=== PATIENT | male | born 1980 | race Caucasian/White ===

== ENCOUNTER 2017-08-15 17:00 | Emergency (ER) | payer MEDICAID ==
[~2017-08-15] VITALS: Ht 175.3 cm; Wt 117.9 kg
[~2017-08-15 17:00] MED LIST: KEFLEX 500MG.500 MG PO; MINOCYCLINE 10100 MG PO; PREDNISONE 20MG20 MG PO; SEPTRA DS 800 M1 TAB PO; TERBINAFINE250 MG PO; TESSALON PERLE100 MG PO
--- NOTE | 2017-08-15 17:08 | Emergency Room Report ---
History of Present Illness Time Seen by [id number] Presenting Problem in Triage Pt arrived:Walked Presenting Problem:PT STATES THAT HE HAS BEEN HAVING A SHARP PAIN IN THE LEFT CHEST FOR [address] AND WENT TO DR[address] GASTELUM OFFICE TODAY AND WAS SENT HERE BECAUSE [facility] OFFICE WAS CLOSED Onset of symptoms date/time:/ or onset unknown for:MEDICAL HX UNKNOWN Treatment Prior to Arrival: SERVICE CONSULTANT Provided by: Sepsis Risk Assessment: Temp: 99 B/P: 163/91 MAP: 115 Pulse: 89 Resp: 18 Recent fever? N Clinical Suspician of Infection? N Mental Status: 1 - Regular (Normal Baseline) Sepsis Risk:Low Sepsis Risk Have you (or family members/close friends) recently traveled outside the [place]? N If Yes, where/when: Have you had exposure to infectious disease within the past month? N TB? Other? Specify: Comment The patient says that he is sent from Dr. Pang's office where he saw nurse practitioner for chest pain and elevated blood pressure. He says he has been having intermittent sharp pains in his sternal and LEFT parasternal area for 2 weeks. They last about 15-20 seconds. No associated shortness of breath, nausea, diaphoresis, or radiation. He does not currently have pain. He says he saw his Suboxone doctor on Monday 4 days ago for the symptoms and was found to have high blood pressure and was told to see his primary care doctor. He went to Dr. Pang's office today and he said his blood pressure was elevated again. He said that they called the manager environmental health and safety's office to have him seen, but they were close , so they sent him to the emergency department to be checked out. Did not discuss admission with him, he is under the impression he was here to be checked. He does not have a history of heart disease, hypertension, diabetes, or hyperlipidemia. He does smoke. His mother has had a heart attack and cardiac stent and his 2 brothers have heart murmurs. He says he has intermittent right-sided headaches for 2-3 days. He says he thinks this is all due to the fact that he is under a lot of stress. He has been given a prescription for lisinopril today by Dr. Pang's office, but has not yet filled it. ALLERGIES Coded Allergies: Penicillins (08/15/17) Home Medications Reported Medications BUPRENORPHINE HCL/NALOXONE HCL (Buprenorphin-Naloxon 8-2 MG Sl) 1 TAB SL BID #14 History Medical History General CAD? No Angina: No MD: No Hypertension? No Hyperlipidemia? No CHF? No DVT? No PE? No COPD? No Asthma? No Anemia? No GERD? No Gastric ulcers? No GI Bleed? No Hernia? Yes Thyroid Problems? No Hypothyroidism? No CVA? No Seizures? No Diabetes? No Renal Insuffiency? No End Stage Renal Disease? No UTI? No Stones? No BPH? No GB Disease: No Nephritic Syndrome? No Asplenia? No Hepatitis? No Sickle Cell Disease? No Arthritis? No Migraines? No Cataracts? No Glaucoma? No MRSA? No HIV? No TB? No Anxiety? No Depression? No Cancer? No More? No Immunization Hx DT/Tetanus 5-10 Years Ago Surgical Hx Previous Surgery?Y HERNIA REPAIR Social History Smoking Hx Packs/day < 1 Pack Alcohol Alcohol: No Review of Systems All Other Systems Reviewed and Negative Constitutional denies diaphoresis Respiratory denies shortness of breath Cardiovascular chest pain Gastrointestinal denies abdominal pain, denies nausea, denies vomiting Psychiatric/Neurological headache Physical Exam Vital Signs Vital Signs Date Time Temp Pulse Resp B/P Pulse O2 O2 Flow FiO2 Ox Delivery Rate 08/15 1818 98.1 76 18 154/93 98 08/15 1701 99.0 89 18 163/91 98 General Appearance normal appearance, WD/WN Eye Exam - bilateral eye normal exam, bilateral eye PERRL, bilateral eye EOMI Ear, Nose, Throat hearing grossly normal, normal ENT inspection Neck normal inspection, non-tender, supple, full range of motion Respiratory Status Yes: trachea midline, chest symmetrical, non tender chest. No: respiratory distress. Lung Sounds bilateral: normal breath sounds, lungs clear. 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 No Results/Orders Laboratory Tests 08/15/171709: Sodium 138, Potassium 3.7, Chloride 103, Carbon Dioxide 32, BUN 9, Creatinine 0.8, Estimated Creat Clear 213 H, Estimated GFR (MDRD) 109, Glucose 146 H, Calcium 8.8, Total Bilirubin 0.3, AST 17, ALT 39, Alkaline Phosphatase 65, Creatine Kinase 99, CK-MB (CK-2) Rel Index 0.6, CK and CKMB Interp 0.6, Troponin I < 0.02, Total Protein 7.5, Albumin 3.8, Globulin 3.7 H, Albumin/Globulin Ratio 1.0 L, WBC 11.0 H, RBC 5.12, Hgb 14.9, Hct 45.1, MCV 88.0, RDW 12.9, Plt Count 193, MPV 9.6, Gran % 66.5, Gran # 7.3, Lymphocytes % 25.8, Monocytes % 4.8 , Eosinophils % 2.5, Basophils % 0.4, Lymphocytes # 2.8, Monocytes # 0.5, Eosinophils # 0.3, Basophils # 0.1, PUBS MCHC 33.1, MCH 29.1 Current Medication Orders Sig/Kelly Start time Last Medication Dose Route Stop Time Status Admin Aspirin 324 MG ONCE ONE 08/15 1730 DC 08/15 PO 08/15 1731 1721 Aspirin 0 .STK-MED ONE 08/15 172 DC .ROUTE Sodium Chloride 10 ML PRN PRN 08/15 1715 DCD IV 08/16 1715 Orders Procedure Date/time Status ELECTROCARDIOGRAM REQUEST 08/15 1716 Active CHEST-PORTABLE 08/15 1716 Active IV SALINE LOCK 08/15 1716 Active CBC WITH AUTO DIFF 08/15 1716 Complete CARDIAC ENZYMES 08/15 1716 Complete CHEM 12 PROFILE 08/15 1716 Complete CM/EKG CM/EKG Comments EKG interpreted by Tate Muhammad MD: Rhythm: sinus Rate: 86 [place]: normal Ectopy: none Conduction: normal ST Segment Changes: none T Wave Changes: none Q Waves: none No evidence of acute ischemia or injury Poor R-wave progression (diminished R-wave in lead V3, possibly related to lead position) XRAY/CT/US XRAY/CT/US XRAY chest Comment X-ray interpreted by Tate Muhammad M.D.: calcified granuloma and lymph nodes on the RIGHT Progress - 6:00 PM: Remains asymptomatic at this time Departure Departure Disposition DC Home or Self Care(routine) Clinical Impression Primary Impression: Atypical chest pain Secondary Impressions: Hypertension Qualifiers: Hypertension type: unspecified Qualified Code: I10 - Essential ( primary) hypertension Condition STABLE Referrals Luis Pang MD Patient Instructions DI for Atypical Chest Pain, High Blood Pressure Additional Instructions Call Dr. Pang's office tomorrow for further instructions and possible cardiology follow-up. Fill your prescription for blood pressure medication and begin taking. Additional instructions for CHEST PAIN: See your physician as soon as possible for further evaluation. Return immediately if worsening chest pain, vomiting, shortness of breath, fever, coughing of blood. ED Critical Care Critical Care No at 2012
[2017-08-15] MEDS ORDERED: BUPRENORPHINE H1 TAB SL (17:11)
[2017-08-15 17:27] LABS: HEMOGLOBIN 14.9 g/dL (14.1-18.0); LYMPH # 2.8 K/mm3 (0.7-4.5); LYMPH % 25.8 % (10-50)
[2017-08-15 17:53] LABS: BUN 9 mg/dL (7-18)
[2017-08-15 18:00] LABS: GFR (ESTIMATED) 109 ML/MIN (>60)
[2017-08-15 18:18] VITALS: BP 154/93
--- NOTE | 2017-08-17 07:34 | RADIOLOGY REPORT PS360 ---
CHEST-PORTABLE HISTORY: CHEST PAIN ORDERING PHYSICIAN: Tate Muhammad MD PATIENT AGE: 37 years COMPARISON: None available FINDINGS: The cardiomediastinal silhouette and pulmonary vascularity are within normal limits. Atelectasis or infiltrate is noted in the right lung base.. There is increased density in the right paratracheal region probably related to overlying sternum as the patient is slightly rotated. Nonrotated PA and lateral chest may confirm. No acute bony abnormalities. There is calcified granuloma in the right lower lobe with calcified nodes in the right hilar area IMPRESSION: 1. Right lower lobe atelectasis or infiltrate. 2. Right paratracheal density which could be related to the overlying sternum. Cannot exclude adenopathy or mass. Consider upright PA and lateral chest for further evaluation.
== END 2017-08-15 18:19 | disposition home or self-care (01) ==
LOC: ER 17:00
PROVIDERS: Emergency Medicine
DX: R07.89 Other chest pain (principal); I10 Essential (primary) hypertension; F17.210 Nicotine dependence, cigarettes, uncomplicated

== ENCOUNTER 2017-08-30 21:30 | Emergency (ER) | payer MEDICAID ==
[~2017-08-30] VITALS: Ht 175.3 cm; Wt 120.2 kg
[~2017-08-30 21:30] MED LIST changes: +BUPRENORPHINE H1 TAB SL
[2017-08-30] MEDS ORDERED: LISINOPRIL10 MG PO (21:37)
[2017-08-30] MEDS ORDERED: AVPAK AZITHROM250 MG PO (21:38)
[2017-08-30 22:43] LABS: HEMOGLOBIN 14.4 g/dL (14.1-18.0); LYMPH # 2.6 K/mm3 (0.7-4.5); LYMPH % 18.9 % (10-50)
--- NOTE | 2017-08-30 23:25 | RADIOLOGY REPORT PS360 ---
CHEST(2 VIEWS-NOT PORTABLE) HISTORY: COUGH,SOA ORDERING PHYSICIAN: Luis Pang MD PATIENT AGE: 37 years COMPARISON: None available FINDINGS: The cardiomediastinal silhouette and pulmonary vascularity are within normal limits. The lungs are clear without infiltrates, suspicious nodules, or pleural effusions. Calcified granuloma is present in the right middle lobe No acute bony abnormalities. IMPRESSION: No change with no acute finding
--- NOTE | 2017-08-30 23:30 | Emergency Room Report ---
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 N Clinical Suspician of Infection? N Mental Status: 1 - Regular (Normal Baseline) Sepsis Risk:Possible Sepsis Risk Have you (or family members/close friends) recently traveled outside the [place]? N If Yes, where/when: Have you had exposure to infectious disease within the past month? TB? Other? 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 No Angina: No [place]: No Hypertension? No Hyperlipidemia? No CHF? No DVT? No PE? No COPD? No Asthma? No Anemia? No GERD? No Gastric ulcers? No GI Bleed? No Hernia? Yes Thyroid Problems? No Hypothyroidism? No CVA? No Seizures? No Diabetes? No Renal Insuffiency? No End Stage Renal Disease? No UTI? No Stones? No BPH? No GB Disease: No Nephritic Syndrome? No Asplenia? No Hepatitis? No Sickle Cell Disease? No Arthritis? No Migraines? No Cataracts? No Glaucoma? No MRSA? No HIV? No TB? No Anxiety? No Depression? No Cancer? No More? No Immunization Hx Ped.Immunizations UTD Yes DT/Tetanus 5-10 Years Ago Surgical Hx Previous Surgery?Y HERNIA REPAIR Social History Smoking Hx Smoker: Current Every Day Smoker Tobacco: Yes Type Cigarettes Packs/day < 1 Pack Alcohol Alcohol: No Drugs none Review of Systems All Other Systems Reviewed and Negative Constitutional see HPI, fever Eyes denies drainage ENT denies: ear discharge. Respiratory see HPI, cough, denies shortness of breath Cardiovascular denies chest pain, denies syncope Gastrointestinal denies abdominal pain, denies diarrhea, denies vomiting Genitourinary denies: dysuria, frequency, hesitancy, hematuria. Musculoskeletal denies back pain, denies joint pain, denies neck pain Skin denies rash Psychiatric/Neurological denies headache, denies seizure Physical Exam Vital Signs Vital Signs Date Time Temp Pulse Resp B/P Pulse O2 O2 Flow FiO2 Ox Delivery Rate 08/30 2239 100.3 79 18 99 08/306 101.2 88 22 169/85 96 - WBC >12,000 or <4,000 or 10% bands? 2 or more SIRS Criteria Met? B/P:169/ MAP:113 Creatinine >2.0? UA output<0.5ml/kg/hr for 2 hrs? Platelet count >100,000? Lactate >2.0mmol/1? INR >1.2 or PTT > than 60 sec? Evidence of Organ Dysfunction? Provider documented clinical suspician of infection? N Sepsis Criteria Count: 2 Sepsis Risk: Possible Sepsis Risk General Appearance no apparent distress Eye Exam - bilateral eye PERRL, bilateral eye EOMI Ear, Nose, Throat normal ENT inspection Neck supple Respiratory Status No: respiratory distress. Lung Sounds bilateral: rhonchi. 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 No Results/Orders Laboratory Tests 08/30/172209: Lactic Acid 1.3 08/30/172209: Sodium 141, Potassium 4.2, Chloride 104, Carbon Dioxide 30, BUN 10, Creatinine 1.0, Estimated Creat Clear 174, Estimated GFR (MDRD) 85, Glucose 122 H, Calcium 9.0, Total Bilirubin 0.1 L, AST 19, ALT 34, Alkaline Phosphatase 68, Total Protein 7.4, Albumin 3.9, Globulin 3.5 H, Albumin/Globulin Ratio 1.1, WBC 13.7 H, RBC 4.82, Hgb 14.4, Hct 42.1, MCV 87.4, RDW 12.9, Plt Count 205, MPV 9.5, Gran % 70.7, Gran # 9.7 H, Lymphocytes % 18.9, Monocytes % 6.2, Eosinophils % 3.8, Basophils % 0.4, Lymphocytes # 2.6, Monocytes # 0.9, Eosinophils # 0.5 H, Basophils # 0.1, PUBS MCHC 34.1, MCH 29.8 08/30/172141: Influenza Type A Ag NOT DETECTED, Influenza Type B Ag NOT DETECTED Current Medication Orders Sig/Kelly Start time Last Medication Dose Route Stop Time Status Admin Sodium Chloride 10 ML PRN PRN 08/30 2215 AC IV 08/31 2207 Sodium Chloride 1,000 ML .Q1H1M 08/30 2215 DC 08/30 IV 08/30 Sodium Chloride 10 ML PRN PRN 08/30 2215 AC IV 08/31 2212 Sodium Chloride 1,000 ML .STK-MED ONE 08/30 2209 DC IV Acetaminophen 1,000 MG ONCE ONE 08/30 2145 DC 08/30 PO 08/30 Ibuprofen 600 MG ONCE ONE 08/30 2145 DC 08/30 PO 08/30 Acetaminophen 0 .STK-MED ONE 08/30 2140 DC PO Ibuprofen 0 .STK-MED ONE 08/30 2140 DC PO Orders Procedure Date/time Status URINALYSIS/COMPLETE 08/30 2231 Active STREP SCREEN THROAT 08/30 2229 Complete IV SALINE LOCK 08/30 2207 Active CULTURE, BLOOD 08/30 2207 Active LACTIC ACID 08/30 2207 Complete CBC WITH AUTO DIFF 08/30 2207 Complete CHEM 12 PROFILE 08/30 2207 Complete CULTURE, THROAT 08/30 2140 Active INFLUENZA A&B ANTIGENS 08/30 2135 Complete XRAY/CT/US XRAY/CT/US XRAY chest XR interpretation by reviewed by me Xray Results normal/NAD Departure Departure Time of Disposition 2327 Disposition DC Home or Self Care(routine) Clinical Impression Primary Impression: Bronchitis Condition STABLE Referrals Poly ROLLINS,Sarwat Moore (Family) Patient Instructions DI for Cough -- Adult Additional Instructions use meds and see pcp for follow up next week Discharge Counseling Counseled pt/family regarding diagnosis, test results, medications/RX, follow up needs Prescriptions Current Visit Scripts Ciprofloxacin HCl (Cipro 500MG TAB) 500 MG PO BID #14 TAB Prednisone (Prednisone 20MG) 20 MG PO BID #10 TAB BENZONATATE (Benzonatate) 100 MG PO TID #15 CAP Metronidazole (Flagyl) 500 MG PO TID #15 TAB ED Critical Care Critical Care No at [id number]
--- NOTE | 2017-08-30 23:30 | Emergency Room Report ---
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 N Clinical Suspician of Infection? N Mental Status: 1 - Regular (Normal Baseline) Sepsis Risk:Possible Sepsis Risk Have you (or family members/close friends) recently traveled outside the [place]? N If Yes, where/when: Have you had exposure to infectious disease within the past month? TB? Other? 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 No Angina: No [place]: No Hypertension? No Hyperlipidemia? No CHF? No DVT? No PE? No COPD? No Asthma? No Anemia? No GERD? No Gastric ulcers? No GI Bleed? No Hernia? Yes Thyroid Problems? No Hypothyroidism? No CVA? No Seizures? No Diabetes? No Renal Insuffiency? No End Stage Renal Disease? No UTI? No Stones? No BPH? No GB Disease: No Nephritic Syndrome? No Asplenia? No Hepatitis? No Sickle Cell Disease? No Arthritis? No Migraines? No Cataracts? No Glaucoma? No MRSA? No HIV? No TB? No Anxiety? No Depression? No Cancer? No More? No Immunization Hx Ped.Immunizations UTD Yes DT/Tetanus 5-10 Years Ago Surgical Hx Previous Surgery?Y HERNIA REPAIR Social History Smoking Hx Smoker: Current Every Day Smoker Tobacco: Yes Type Cigarettes Packs/day < 1 Pack Alcohol Alcohol: No Drugs none Review of Systems All Other Systems Reviewed and Negative Constitutional see HPI, fever Eyes denies drainage ENT denies: ear discharge. Respiratory see HPI, cough, denies shortness of breath Cardiovascular denies chest pain, denies syncope Gastrointestinal denies abdominal pain, denies diarrhea, denies vomiting Genitourinary denies: dysuria, frequency, hesitancy, hematuria. Musculoskeletal denies back pain, denies joint pain, denies neck pain Skin denies rash Psychiatric/Neurological denies headache, denies seizure Physical Exam Vital Signs Vital Signs Date Time Temp Pulse Resp B/P Pulse O2 O2 Flow FiO2 Ox Delivery Rate 08/30 2239 100.3 79 18 99 08/306 101.2 88 22 169/85 96 - WBC >12,000 or <4,000 or 10% bands? 2 or more SIRS Criteria Met? B/P:169/ MAP:113 Creatinine >2.0? UA output<0.5ml/kg/hr for 2 hrs? Platelet count >100,000? Lactate >2.0mmol/1? INR >1.2 or PTT > than 60 sec? Evidence of Organ Dysfunction? Provider documented clinical suspician of infection? N Sepsis Criteria Count: 2 Sepsis Risk: Possible Sepsis Risk General Appearance no apparent distress Eye Exam - bilateral eye PERRL, bilateral eye EOMI Ear, Nose, Throat normal ENT inspection Neck supple Respiratory Status No: respiratory distress. Lung Sounds bilateral: rhonchi. 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 No Results/Orders Laboratory Tests 08/30/172209: Lactic Acid 1.3 08/30/172209: Sodium 141, Potassium 4.2, Chloride 104, Carbon Dioxide 30, BUN 10, Creatinine 1.0, Estimated Creat Clear 174, Estimated GFR (MDRD) 85, Glucose 122 H, Calcium 9.0, Total Bilirubin 0.1 L, AST 19, ALT 34, Alkaline Phosphatase 68, Total Protein 7.4, Albumin 3.9, Globulin 3.5 H, Albumin/Globulin Ratio 1.1, WBC 13.7 H, RBC 4.82, Hgb 14.4, Hct 42.1, MCV 87.4, RDW 12.9, Plt Count 205, MPV 9.5, Gran % 70.7, Gran # 9.7 H, Lymphocytes % 18.9, Monocytes % 6.2, Eosinophils % 3.8, Basophils % 0.4, Lymphocytes # 2.6, Monocytes # 0.9, Eosinophils # 0.5 H, Basophils # 0.1, PUBS MCHC 34.1, MCH 29.8 08/30/172141: Influenza Type A Ag NOT DETECTED, Influenza Type B Ag NOT DETECTED Current Medication Orders Sig/Kelly Start time Last Medication Dose Route Stop Time Status Admin Sodium Chloride 10 ML PRN PRN 08/30 2215 AC IV 08/31 2207 Sodium Chloride 1,000 ML .Q1H1M 08/30 2215 DC 08/30 IV 08/30 Sodium Chloride 10 ML PRN PRN 08/30 2215 AC IV 08/31 2212 Sodium Chloride 1,000 ML .STK-MED ONE 08/30 2209 DC IV Acetaminophen 1,000 MG ONCE ONE 08/30 2145 DC 08/30 PO 08/30 Ibuprofen 600 MG ONCE ONE 08/30 2145 DC 08/30 PO 08/30 Acetaminophen 0 .STK-MED ONE 08/30 2140 DC PO Ibuprofen 0 .STK-MED ONE 08/30 2140 DC PO Orders Procedure Date/time Status URINALYSIS/COMPLETE 08/30 2231 Active STREP SCREEN THROAT 08/30 2229 Complete IV SALINE LOCK 08/30 2207 Active CULTURE, BLOOD 08/30 2207 Active LACTIC ACID 08/30 2207 Complete CBC WITH AUTO DIFF 08/30 2207 Complete CHEM 12 PROFILE 08/30 2207 Complete CULTURE, THROAT 08/30 2140 Active INFLUENZA A&B ANTIGENS 08/30 2135 Complete XRAY/CT/US XRAY/CT/US XRAY chest XR interpretation by reviewed by me Xray Results normal/NAD Departure Departure Time of Disposition 2327 Disposition DC Home or Self Care(routine) Clinical Impression Primary Impression: Bronchitis Condition STABLE Referrals Poly ROLLINS,Sarwat Moore (Family) Patient Instructions DI for Cough -- Adult Additional Instructions use meds and see pcp for follow up next week Discharge Counseling Counseled pt/family regarding diagnosis, test results, medications/RX, follow up needs Prescriptions Current Visit Scripts Ciprofloxacin HCl (Cipro 500MG TAB) 500 MG PO BID #14 TAB Prednisone (Prednisone 20MG) 20 MG PO BID #10 TAB BENZONATATE (Benzonatate) 100 MG PO TID #15 CAP Metronidazole (Flagyl) 500 MG PO TID #15 TAB ED Critical Care Critical Care No at 5338
[2017-08-30] MEDS ORDERED: TESSALON PERLE100 MG PO (23:40)
[2017-08-30] MEDS ORDERED: CIPRO 500MG TA500 MG PO (23:40)
[2017-08-30] MEDS ORDERED: FLAGYL500 M1 PO (23:40)
[2017-08-30] MEDS ORDERED: PREDNISONE 20MG20 MG PO (23:40)
[2017-08-30 23:51] VITALS: BP 151/96
== END 2017-08-30 23:52 | disposition home or self-care (01) ==
LOC: ER 21:30
PROVIDERS: Emergency Medicine
DX: J20.9 Acute bronchitis, unspecified (principal); F17.210 Nicotine dependence, cigarettes, uncomplicated